=== PATIENT | female | born 1965 | race Two or more races ===

== ENCOUNTER → 2024-06-26 | Outpatient (CLI) | payer BC, SELFPAY ==
--- NOTE | 2024-06-26 | XR_ITS ---
Examination: Cervical spine 3 views Technique one AP lateral coned AP odontoid cervical spine 3 views Exam date and time: June 26, 2024 0844 hours INDICATIONS: Neck pain beginning one year ago. FINDINGS: No cervical fracture Minimal anterolisthesis C5 on C6 Advanced degenerative disc disease C6-C7 Intact odontoid Soft tissue carotid vascular calcification IMPRESSION: Advanced degenerative disc disease C6-C7
--- NOTE | 2024-06-26 | XR_ITS ---
Examination: Bilateral hips, AP pelvis, 5 views Technique: AP, lateral views both hips, AP pelvis, 5 views Exam date and time: June 26, 2024 0836 hours INDICATIONS: Bilateral hip pain beginning 2 months ago. FINDINGS: Moderate osteopenia No right or left hip fracture or hip dislocation Greater trochanteric bursitis left hip Minimal narrowing hip joints Bones of the pelvis intact IMPRESSION: Minimal narrowing hip joints Greater trochanteric bursitis left hip
== END | disposition home or self-care (01) ==
PROVIDERS: PCP Nurse Practitioner Family; Referring Provider Nurse Practitioner Family; Visit Provider Nurse Practitioner Family
DX: M70.62 Trochanteric bursitis, left hip (principal); M25.852 Other specified joint disorders, left hip; M25.851 Other specified joint disorders, right hip
CPT/HCPCS: 72040; 73522

== ENCOUNTER → 2024-07-25 | Outpatient (BNVA) | payer BC, SELFPAY | END | disposition home or self-care (01) | PROVIDERS: PCP Nurse Practitioner Family; Referring Provider Nurse Practitioner Family; Visit Provider Nurse Practitioner Family | DX: M54.2 Cervicalgia (principal); Z71.2 Person consulting for explanation of examination or test findings; M25.551 Pain in right hip; M50.30 Other cervical disc degeneration, unspecified cervical region; M85.88 Other specified disorders of bone density and structure, other site | CPT/HCPCS: 99212; G0463 ==

== ENCOUNTER → 2024-10-17 | Outpatient (BNVA) | payer BC, SELFPAY | END | disposition home or self-care (01) | PROVIDERS: PCP Nurse Practitioner Family; Referring Provider Nurse Practitioner Family; Visit Provider Nurse Practitioner Family | DX: Z71.3 Dietary counseling and surveillance (principal); I10 Essential (primary) hypertension; E78.5 Hyperlipidemia, unspecified; R73.03 Prediabetes; E66.9 Obesity, unspecified; Z68.39 Body mass index [BMI] 39.0-39.9, adult | CPT/HCPCS: 99213 ==

== ENCOUNTER → 2025-03-11 | Outpatient (BNVA) | payer BC, SELFPAY | END | disposition home or self-care (01) | PROVIDERS: PCP Nurse Practitioner Family; Referring Provider Nurse Practitioner Family; Visit Provider Nurse Practitioner Family | DX: Z71.2 Person consulting for explanation of examination or test findings (principal); E78.5 Hyperlipidemia, unspecified; R73.03 Prediabetes; E03.9 Hypothyroidism, unspecified; I10 Essential (primary) hypertension | CPT/HCPCS: 99212; 99213; G0463 ==